=== PATIENT | female | born 1995 | race Caucasian/White ===

== ENCOUNTER 2018-04-01 07:34 | Inpatient (IN) | payer MEDICAID, OTHER ==
[~2018-04-01] VITALS: Ht 149.9 cm; Wt 88.0 kg
[2018-04-01] MEDS ORDERED: SODIUM CHLORIDE 0.9% 1,000 ML IV ONE (07:56)
[2018-04-01] MEDS ORDERED: LEVETIRACETAM 1000MG/100ML 100 ML IV ONE (08:00)
[2018-04-01 09:23] LABS: BASOPHILS % 0.5 % (0.0-2.0); EOSINOPHILS % 0.9 % (0.0-5.0); HEMOGLOBIN. 11.7 g/dL (12.0-16.0); LYMPHOCYTES % 24.5 % (20.0-50.0); MEAN CORPUSCULAR HEMOGLOBIN 31.8 pg (28.0-32.0); MEAN CORPUSCULAR VOLUME 94.8 fL (81.0-99.0); MEAN PLATELET VOLUME 8.4 fl (7.4-10.4); MONOCYTES % 6.3 % (2.0-8.0); NEUTROPHILS % 67.8 % (40.0-76.0); PLATELET 273 x1000/uL (130-400); RED BLOOD CELL COUNT 3.69 mill/uL (4.2-5.4); RED CELL DISTRIBUTION WIDTH 15.3 % (11.6-14.6)
[2018-04-01 09:30] LABS: CHLORIDE 105 mEq/L (98-107)
[2018-04-01 09:34] LABS: ETHANOL BLOOD < 10 mg/dL
[2018-04-01 09:37] LABS: HCG SCREEN NEGATIVE
[2018-04-01 09:39] LABS: CREATINE KINASE 59 IU/L (26-192); PROTHROMBIN TIME 10.1 sec (9.1-11.1)
[2018-04-01 10:22] LABS: CLARITY URINE CLEAR (CLEAR); COLOR URINE YELLOW (YELLOW); KETONES URINE NEGATIVE (NEGATIVE); LEUKOCYTE ESTERASE URINE NEGATIVE (NEGATIVE); NITRITE URINE NEGATIVE (NEGATIVE); OCCULT BLOOD URINE 3+ (NEGATIVE); PROTEIN URINE NEGATIVE (NEGATIVE); SPECIFIC GRAVITY URINE 1.027 (1.005-1.030); UROBILINOGEN URINE 0.2 E.U./dL (0.2-1.0)
[2018-04-01 10:59] LABS: *BENZODIAZEPINES SCREEN URINE NEGATIVE (NEGATIVE); *COCAINE SCREEN URINE NEGATIVE (NEGATIVE)
[2018-04-01 11:00] LABS: *AMPHETAMINES SCREEN URINE NEGATIVE (NEGATIVE); *BARBITURATES SCREEN URINE NEGATIVE (NEGATIVE); CANNABINOID URINE SCREEN NEGATIVE (NEGATIVE); METHADONE URINE SCREEN NEGATIVE (NEGATIVE); OPIATES URINE SCREEN NEGATIVE (NEGATIVE); PHENCYCLIDINE URINE SCREEN NEGATIVE (NEGATIVE)
[2018-04-01] MEDS ORDERED: CEFTRIAXONE 1 G PREMIX 50 ML IV ONE (12:00)
[2018-04-01 15:09] VITALS: BP 110/45
[2018-04-01 16:00] VITALS: BP 91/49
[2018-04-01 20:00] VITALS: BP 97/55
[2018-04-02] VITALS: BP 90/65
[2018-04-02 04:00] VITALS: BP 100/58
[2018-04-02 08:00] VITALS: BP 99/42
[2018-04-02 12:00] VITALS: BP 90/45
[2018-04-02] MEDS ORDERED: CEFTRIAXONE 1 G PREMIX 50 ML IV SCH (12:00)
[2018-04-02] MEDS: CEFTRIAXONE 1,000 MG in DEXTROSE 5% WATER 50 ML IV SCH (12:04)
[2018-04-02 12:30] LABS: HEMOGLOBIN. 11.1 g/dL (12.0-16.0); MEAN CORPUSCULAR HEMOGLOBIN 32.3 pg (28.0-32.0); MEAN CORPUSCULAR VOLUME 95.8 fL (81.0-99.0); PLATELET 261 x1000/uL (130-400); RED BLOOD CELL COUNT 3.44 mill/uL (4.2-5.4); RED CELL DISTRIBUTION WIDTH 15.7 % (11.6-14.6)
[2018-04-02 12:38] LABS: CHLORIDE 109 mEq/L (98-107)
[2018-04-02 14:52] LABS: PLATELET ESTIMATE NORMAL
[2018-04-02 16:00] VITALS: BP 98/55
[2018-04-02 20:00] VITALS: BP 108/48
[2018-04-02] MEDS: LEVETIRACETAM 500MG TABLET PO SCH (21:09)
[2018-04-03] VITALS (7 sets, daily range): BP systolic 87–114; BP diastolic 43–61
[2018-04-03] MEDS: LEVETIRACETAM 500MG TABLET PO SCH (08:14)
[2018-04-03] MEDS: CEFTRIAXONE 1,000 MG in DEXTROSE 5% WATER 50 ML IV SCH ×2 (11:18→12:00)
== END 2018-04-03 17:58 | disposition home or self-care (01) | DRG 53 ==
LOC: ER 07:34 → 7WST 10:23 → EDBEDREQ 10:25 → ENRESERV 14:07
PROVIDERS: ADMIT Internal Medicine; ATTEND Internal Medicine
DX: G40.89 Other seizures (principal); F79 Unspecified intellectual disabilities; N39.0 Urinary tract infection, site not specified; Q90.9 Down syndrome, unspecified; R62.50 Unspecified lack of expected normal physiological development in childhood
CPT/HCPCS: 36415; 71045; 80048; 80305; 82140; 82550; 84703; 85007; 85027; 93005; 96365; 99285; G0482; J0696; J1953; J7030; J7050; J7060